=== PATIENT | male | born 1980 | race Caucasian/White ===

== ENCOUNTER → 2018-10-19 09:04 | Outpatient (CLI) | payer OTHER, SELFPAY ==
--- NOTE | 2018-10-19 09:18 | RAD_ITS ---
HISTORY: RECENTLY PASSED LEFT SIDE KIDNEY STONE, HX PREVIOUS STONES EXAM: KUB COMPARISON: None FINDINGS: # of images incl. paperwork: 2 XR Abdomen 1 View: BOWEL GAS PATTERN: Non-obstructive. No bowel or stomach distention. FREE AIR: None apparent. ORGANOMEGALY: Not seen. CALCIFICATIONS: No pathologic calcifications observed. No apparent renal or urinary bladder stones. LUNG BASES: Clear. BONES AND SOFT TISSUES: Unremarkable. RAD/Abdomen Single View IMPRESSION: No apparent renal stones. at 0311 Reported and signed by: Rei Delgado MD Electronically Signed: Rei Delgado, at 3:10 EST Tel , Service support ,
[2018-10-19 10:04] LABS: Creatinine, Serum 0.93 mg/dL (0.70-1.30); EST Glomerular Filtration Rate 96 mL/min (>60); Est Glom Filt Rate - Afr Amer 116 mL/min (>60)
== END ==
PROVIDERS: Referring Provider Nurse Practitioner Adult Health; Visit Provider Nurse Practitioner Adult Health
DX: N20.0 Calculus of kidney (principal); R94.4 Abnormal results of kidney function studies
CPT/HCPCS: 36415; 74018; 82565